=== PATIENT | male | born 1955 | race Caucasian/White ===

== ENCOUNTER → 2021-02-27 15:24 | Outpatient (BNVA) | payer OTHER, SELFPAY | PROVIDERS: Visit Provider Nurse Practitioner Family | DX: Z12.5 Encounter for screening for malignant neoplasm of prostate (principal); Z13.1 Encounter for screening for diabetes mellitus; R53.83 Other fatigue | CPT/HCPCS: 80053; 85025; G0103 ==

== ENCOUNTER → 2021-04-02 14:29 | Outpatient (BNVA) | payer OTHER, SELFPAY | PROVIDERS: PCP Nurse Practitioner Family; Visit Provider Urology | DX: N40.0 Benign prostatic hyperplasia without lower urinary tract symptoms (principal); R97.20 Elevated prostate specific antigen [PSA] | CPT/HCPCS: 81003; 84153 ==

== ENCOUNTER 2021-10-24 13:18 | Outpatient (CLI) | payer OTHER, SELFPAY | END 2021-10-24 13:19 | disposition home or self-care (01) | LOC: LAB 13:19 | PROVIDERS: PCP Nurse Practitioner Family; Visit Provider Urology | DX: R97.20 Elevated prostate specific antigen [PSA] (principal) | CPT/HCPCS: 36415; 81003; 84153 ==

== ENCOUNTER 2022-04-25 12:54 | Outpatient (CLI) | payer MEDICARE, SELFPAY | END 2022-04-25 12:55 | disposition home or self-care (01) | PROVIDERS: PCP Nurse Practitioner Family; Visit Provider Urology | DX: R97.20 Elevated prostate specific antigen [PSA] (principal) | CPT/HCPCS: 36415; 84153 ==

== ENCOUNTER → 2022-04-28 10:40 | Outpatient (BNVA) | payer MEDICARE, SELFPAY | PROVIDERS: PCP Nurse Practitioner Family; Visit Provider Nurse Practitioner Family | DX: R97.20 Elevated prostate specific antigen [PSA] (principal); N40.0 Benign prostatic hyperplasia without lower urinary tract symptoms; R73.09 Other abnormal glucose; E78.5 Hyperlipidemia, unspecified | CPT/HCPCS: 80053; 80061; 83036; 83721 ==

== ENCOUNTER → 2022-09-09 08:56 | Outpatient (BNVA) | payer MEDICARE, SELFPAY | PROVIDERS: PCP Nurse Practitioner Family; Visit Provider Nurse Practitioner Family | DX: N39.0 Urinary tract infection, site not specified (principal); E11.42 Type 2 diabetes mellitus with diabetic polyneuropathy; E78.2 Mixed hyperlipidemia; Z12.5 Encounter for screening for malignant neoplasm of prostate; R31.9 Hematuria, unspecified; R39.9 Unspecified symptoms and signs involving the genitourinary system; E11.9 Type 2 diabetes mellitus without complications | CPT/HCPCS: 80061; 81000; 83036; 87077; 87086; 87184 ==

== ENCOUNTER → 2022-09-12 17:03 | Outpatient (BNVA) | payer MEDICARE, SELFPAY | PROVIDERS: PCP Nurse Practitioner Family; Visit Provider Nurse Practitioner Family | DX: N39.0 Urinary tract infection, site not specified (principal); E11.42 Type 2 diabetes mellitus with diabetic polyneuropathy; E78.2 Mixed hyperlipidemia; Z12.5 Encounter for screening for malignant neoplasm of prostate; R31.9 Hematuria, unspecified; R39.9 Unspecified symptoms and signs involving the genitourinary system; E11.9 Type 2 diabetes mellitus without complications; R97.20 Elevated prostate specific antigen [PSA] | CPT/HCPCS: 84153 ==

== ENCOUNTER 2023-02-11 08:01 | Outpatient (CLI) | payer MEDICARE, SELFPAY ==
--- NOTE | 2023-02-11 08:30 | US_ITS ---
WS: [id number] ULTRASOUND ABDOMEN LIMITED CLINICAL INFORMATION: R10.811 - Right upper quadrant abdominal tenderness COMPARISON: None. FINDINGS: Liver Size: Enlarged craniocaudal length: 18.3 cm. Echogenicity: Coarse surface nodularity: None. Mass (size and location): None. Bile ducts Intrahepatic ducts: Normal. Common bile duct diameter: 0.4 cm. Gallbladder Shadowing gallbladder calculus measuring 8 mm near the gallbladder neck Gallstones: Present Gallbladder sludge: None. Gallbladder wall thickening: None. Pericholecystic fluid: None. Sonographic Florian sign: Absent. Pancreas Normal as visualized. Right kidney: Slightly lobulated kidney contour likely due to benign dromedary hump. Hydronephrosis: None. Size: 12.2 cm x 5.0 cm x 5.6 cm. Abdominal aorta and IVC Visualized portions are normal. Ascites: None. IMPRESSION: 1. Hepatomegaly with diffuse fatty infiltration. 2. 8 mm gallbladder calculus near the gallbladder neck. No gallbladder wall thickening or pericholec ystic fluid. 3. Normal common bile duct. 4. No hydronephrosis in the RIGHT kidney.
== END 2023-02-11 08:02 | disposition home or self-care (01) ==
LOC: RAD 08:01
PROVIDERS: PCP Nurse Practitioner Family; Visit Provider Nurse Practitioner Family
DX: R10.811 Right upper quadrant abdominal tenderness (principal); K76.0 Fatty (change of) liver, not elsewhere classified; R16.0 Hepatomegaly, not elsewhere classified; K80.20 Calculus of gallbladder without cholecystitis without obstruction
CPT/HCPCS: 76705

== ENCOUNTER → 2023-05-26 08:59 | Outpatient (BNVA) | payer MEDICARE, SELFPAY | PROVIDERS: PCP Nurse Practitioner Family; Visit Provider Nurse Practitioner Family | DX: E11.9 Type 2 diabetes mellitus without complications (principal); N40.0 Benign prostatic hyperplasia without lower urinary tract symptoms | CPT/HCPCS: 80053; 80061; 83036; 84153; 85025 ==

== ENCOUNTER 2023-11-17 14:31 | Outpatient (CLI) | payer MEDICARE, SELFPAY ==
--- NOTE | 2023-11-17 14:36 | XRR_ITS ---
PROCEDURE INFORMATION: Exam: XR Left Ankle Exam date and time: 11/17/2023 2:45 PM Age: 68 years old Clinical indication: Pain; Ankle; Left; Additional info: M25.562 - pain in left ankle TECHNIQUE: Imaging protocol: Radiologic exam of the left ankle. Views: 3 or more views. COMPARISON: No relevant prior studies available. FINDINGS: Bones/joints: Lateral soft tissue swelling. Likely old trauma with corticated densities adjacent to the joint space. Degenerative changes of the tibiotalar joint. There is no acute linear fracture. Soft tissues: Normal. XR/XR ankle LT min 3V* [id number] IMPRESSION: Evidence of prior fracture plus degenerative joint disease.
--- NOTE | 2023-11-17 14:36 | XRR_ITS ---
PROCEDURE INFORMATION: Exam: XR Right Shoulder Exam date and time: 11/17/2023 2:45 PM Age: 68 years old Clinical indication: Shoulder; Right; Patient HX: RT foot pain x 1 day, fell today and heard a pop around 1st digit, swelling and bruising; Additional info: M25.511 - pain in right shoulder TECHNIQUE: Imaging protocol: Radiologic exam of the right shoulder. Views: 2 or more views. COMPARISON: No relevant prior studies available. FINDINGS: Bones/joints: Mild acromioclavicular and glenohumeral spurring. No fracture or dislocation. No acute osseous, joint, or soft tissue abnormality. Soft tissues: Normal. XR/XR shoulder RT min 2V* [id number] IMPRESSION: No acute findings.
== END 2023-11-17 14:32 | disposition home or self-care (01) ==
LOC: RAD 14:34
PROVIDERS: PCP Nurse Practitioner Family; Visit Provider Nurse Practitioner Family
DX: M19.072 Primary osteoarthritis, left ankle and foot (principal); W19.XXXA Unspecified fall, initial encounter; M25.562 Pain in left knee; M25.511 Pain in right shoulder; Z90.49 Acquired absence of other specified parts of digestive tract
CPT/HCPCS: 73030; 73610

== ENCOUNTER → 2023-11-27 11:46 | Outpatient (BNVA) | payer MEDICARE, SELFPAY | PROVIDERS: PCP Nurse Practitioner Family; Visit Provider Podiatrist Foot & Ankle Surgery | DX: M25.572 Pain in left ankle and joints of left foot (principal); G89.29 Other chronic pain; M19.072 Primary osteoarthritis, left ankle and foot; M25.372 Other instability, left ankle | CPT/HCPCS: 99203 ==

== ENCOUNTER → 2023-12-02 07:54 | Outpatient (BNVA) | payer MEDICARE, SELFPAY | PROVIDERS: PCP Nurse Practitioner Family; Visit Provider Nurse Practitioner Family | DX: I10 Essential (primary) hypertension (principal); E11.9 Type 2 diabetes mellitus without complications | CPT/HCPCS: 80053; 80061; 83036 ==

== ENCOUNTER → 2024-02-09 14:24 | Outpatient (BNVA) | payer MEDICARE, SELFPAY | PROVIDERS: PCP Nurse Practitioner Family; Visit Provider Student in an Organized Health Care Education/Training Program | DX: M75.41 Impingement syndrome of right shoulder | CPT/HCPCS: 20610; 99213; J3301 ==

== ENCOUNTER 2024-02-24 10:56 | Outpatient (CLI) | payer MEDICARE, SELFPAY | END 2024-02-24 10:57 | disposition home or self-care (01) | LOC: SPT 10:57 | PROVIDERS: PCP Nurse Practitioner Family; Visit Provider Podiatrist Foot & Ankle Surgery | DX: Z46.89 Encounter for fitting and adjustment of other specified devices (principal); M25.532 Pain in left wrist | CPT/HCPCS: L4361 ==

== ENCOUNTER → 2024-05-17 07:32 | Outpatient (BNVA) | payer MEDICARE, SELFPAY | PROVIDERS: PCP Nurse Practitioner Family; Visit Provider Podiatrist Foot & Ankle Surgery | DX: M19.072 Primary osteoarthritis, left ankle and foot (principal); M25.572 Pain in left ankle and joints of left foot; G89.29 Other chronic pain; M25.372 Other instability, left ankle; E11.9 Type 2 diabetes mellitus without complications | CPT/HCPCS: 20605; 99213; J1100; J3301; J3490 ==

== ENCOUNTER → 2024-06-14 10:26 | Outpatient (BNVA) | payer MEDICARE, SELFPAY | PROVIDERS: PCP Nurse Practitioner Family; Visit Provider Student in an Organized Health Care Education/Training Program | DX: M75.41 Impingement syndrome of right shoulder (principal) | CPT/HCPCS: 20610; 99213; J3301; J9999 ==

== ENCOUNTER → 2024-07-19 09:20 | Outpatient (BNVA) | payer MEDICARE, SELFPAY | PROVIDERS: PCP Nurse Practitioner Family; Visit Provider Podiatrist Foot & Ankle Surgery | DX: M25.571 Pain in right ankle and joints of right foot (principal); M19.072 Primary osteoarthritis, left ankle and foot; M25.372 Other instability, left ankle; M25.572 Pain in left ankle and joints of left foot; E11.9 Type 2 diabetes mellitus without complications; G89.29 Other chronic pain | CPT/HCPCS: 73610; 99214 ==

== ENCOUNTER 2024-07-28 11:16 | Outpatient (CLI) | payer MEDICARE, SELFPAY ==
--- NOTE | 2024-07-28 11:45 | MRR_ITS ---
PROCEDURE INFORMATION: Exam: MR Left Lower Extremity Joint Without Contrast; Ankle Exam date and time: 07/28/2024 12:03 PM Age: 69 years old Clinical indication: Left; Chronic lt ankle pain/no injury; Additional info: Surgical planning TECHNIQUE: Imaging protocol: Magnetic resonance imaging of the left lower extremity without contrast. Exam focused on the ankle. COMPARISON: CR XR ankle LT min 3V* [id number] 11/17/2023 2:45 PM FINDINGS: Bones/joints: Prominent arthritic changes involve the tibiotalar joint. There is a moderate joint effusion present along with prominent synovial hypertrophy and multiple synovial calcifications. Subchondral bony edema involves the distal tibia as well as the talar dome. Prominent bony spurring involves the lateral malleolus with adjacent calcifications noted. Prominent arthritic spurring involves the medial malleolus with adjacent soft tissue calcifications. LIGAMENTS: Distal tibiofibular syndesmosis: Unremarkable. No tear. Anterior talofibular ligament: Unremarkable. No tear. Posterior talofibular ligament: Unremarkable. No tear. Calcaneofibular ligament: Unremarkable. No tear. Deltoid ligament complex: Unremarkable. No tear. TENDONS: Flexor tendons of foot: See below. Tibialis posterior tendon: Unremarkable as visualized. Peroneal tendons: Unremarkable as visualized. Extensor tendons of foot: Unremarkable as visualized. Tibialis anterior tendon: Unremarkable as visualized. Achilles tendon: Unremarkable as visualized. Tarsal canal (Sinus tarsi): Unremarkable. Normal signal of the fat. Tarsal tunnel: Unremarkable. Soft tissues: There is prominent fluid surrounding the medial tendons of the ankle but the tendons demonstrate no evidence of tear or significant tendinitis. Plantar fascia: Plantar fascia is unremarkable. MR/MR ankle LT wo con* [id number] IMPRESSION: 1. Prominent arthritic changes as detailed above 2. Tenosynovitis of the medial ankle tendons
== END 2024-07-28 11:17 | disposition home or self-care (01) ==
PROVIDERS: PCP Nurse Practitioner Family; Visit Provider Podiatrist Foot & Ankle Surgery
DX: M19.072 Primary osteoarthritis, left ankle and foot (principal); M25.372 Other instability, left ankle; M65.872 Other synovitis and tenosynovitis, left ankle and foot; M25.472 Effusion, left ankle; R93.6 Abnormal findings on diagnostic imaging of limbs; M67.272 Synovial hypertrophy, not elsewhere classified, left ankle and foot; M77.8 Other enthesopathies, not elsewhere classified
CPT/HCPCS: 73721

== ENCOUNTER → 2024-08-01 09:32 | Outpatient (BNVA) | payer MEDICARE, SELFPAY | PROVIDERS: PCP Nurse Practitioner Family; Visit Provider Podiatrist Foot & Ankle Surgery | DX: M19.072 Primary osteoarthritis, left ankle and foot (principal); E11.9 Type 2 diabetes mellitus without complications; M25.372 Other instability, left ankle; M25.571 Pain in right ankle and joints of right foot; G89.29 Other chronic pain; M25.572 Pain in left ankle and joints of left foot; E11.69 Type 2 diabetes mellitus with other specified complication | CPT/HCPCS: 99214 ==

== ENCOUNTER → 2024-08-31 10:25 | Outpatient (BNVA) | payer MEDICARE, SELFPAY | PROVIDERS: PCP Nurse Practitioner Family; Visit Provider Nurse Practitioner Family | DX: I10 Essential (primary) hypertension (principal); E11.9 Type 2 diabetes mellitus without complications | CPT/HCPCS: 80053; 80061; 83036; 83721 ==

== ENCOUNTER 2024-09-02 09:06 | Day surgery (SDC) | payer MEDICARE, SELFPAY ==
[2024-09-02] VITALS (10 sets, daily range): BP systolic 147–199; BP diastolic 69–115; PULSE 57–72; RESP 12–18; TEMP 36.1–36.6; O2SAT 93–98; BMI 35.9
--- NOTE | 2024-09-02 09:42 | ANES.PREANE2 ---
Pre-Anesthetic Assessment Height/Weight: Height 1.8 m Preop Diagnosis: Left ankle arthritis Operation Date: 09/02/24 11:05 Proposed Procedures p LEFT Ankle Arthroscopy(Left) - Stefan Marc DPM s Debridement(Left) - Stefan Marc DPM Familial anesthetic complications: none Was Beta Milady taken within 24 hours: N/A Was Clonidine taken within 24 hours: N/A Last intake: > 8 hrs Social Tobacco (chews) and No alcohol Exam alert, oriented x 3, clear to auscultation bilaterally and regular rate & rhythm Airway Mallampati: Class III Dentition: full CV/HEM Hypertension AAA GI Gastroesophageal Reflux Disease Anesthetic Plan ASA status: 3 Anesthesia: General and Regional (specify below) Risk of > 500 ml blood loss (7ml/kg in children): No Medications/Allergies Home Medications ?Medication ?Instructions ?Recorded ?Confirmed ?Last Taken ?Type acetaminophen 325 mg tablet 325 mg PO QID PRN Mild Pain (Scale 04/02/21 09/01/24 Unknown History (Tylenol) Score 1-4) omeprazole 20 mg tablet,delayed 20 mg PO DAILY 04/02/21 09/01/24 09/01/24 History release Articulating AFO to the left #1 ea 11/27/23 08/31/24 Unknown Rx CAM BOOT #1 ea 02/24/24 08/31/24 Unknown Rx lisinopril 10 mg tablet 10 mg PO DAILY #90 tabs 08/31/24 09/02/24 Unknown Rx tamsulosin 0.4 mg capsule 0.4 mg PO DAILY 09/01/24 09/01/24 09/01/24 History finasteride 5 mg tablet 5 mg PO DAILY 09/02/24 09/02/24 09/01/24 History Allergies Allergy/AdvReac Type Severity Reaction Status Date / Time No Known Allergies Allergy Verified 09/01/24 12:22 [facility] Anesthesia Medical History BPH loc w/o ur obs/LUTS Elevated PSA Diverticulitis GERD (gastroesophageal reflux disease) Surgical History History of cholecystectomy History of ear surgery History of colon resection Family History Mother , in her 70's Lung disease Father , at age 76 Cancer leukemia Diabetes Social History Smoking and tobacco/nicotine status: former use of tobacco/nicotine Alcohol intake: current Alcohol intake frequency: holidays/special occasions only Substance/Drug Use: never Adopted: No Lives independently: Yes Household members: spouse Marital status: Current occupational status: employed
[2024-09-02] MEDS: gabapentin 300 mg Capsule PO (09:47)
[2024-09-02] MEDS: sodium chloride 0.9% 1,000 ML 30 ML IV (09:47)
[2024-09-02] MEDS: CELEcoxib 200 mg Capsule 400 MG PO (09:47)
[2024-09-02 09:48] LABS: Glucose Point of Care 191 mg/dL (70-110)
--- NOTE | 2024-09-02 10:31 | W.PM.OPSUD ---
Surgery/Procedure H&P Update DATE OF PROCEDURE: September 02, 2024 DATE H&P PERFORMED: 09/02/24 H&P UPDATE INFORMATION: I have reviewed H&P completed within last 30 days, I have examined patient prior to procedure, No changes to prior documentation and Risks and benefits of the procedure reviewed PREOP DIAGNOSIS: Left ankle arthritis PLANNED PROCEDURE: Operation Date: 09/02/24 11:05 Proposed Procedures p LEFT Ankle Arthroscopy(Left) - Stefan Marc DPM s Debridement(Left) - Stefan Marc DPM
--- NOTE | 2024-09-02 10:32 | PM.OPSURHP ---
Providers/Chief Complaint Primary Care Provider: DORIS Montesinos Chief Complaint: M25.572 History of Present Illness Mr. Winkler is an established 69 year old male patient who presents to the clinic for follow up of his left ankle pain and to go over recent MRI results. The patient is a 69-year-old male presenting with left ankle arthritis, which he has been managing for several years. Recently, the patient noted an increase in symptoms, including pain and grinding in the affected ankle. These symptoms are attributed to the presence of bone spurs, with the most discomfort located in the anterior aspect of the ankle. The patient has tried conservative management, including [id number] medications, but without adequate relief. No previous surgeries have been performed on the affected ankle. The patient is considering surgical options to alleviate the chronic symptoms that have progressively worsened over time. Accompanied by his and granddaughter. Review of Systems General: Reports: 10 or more systems reviewed and unremarkable except in HPI and below Const: Denies: fever(s) or chills Eyes: Denies: change in vision Card: Denies: chest pain or palpitations Resp: Denies: dyspnea or productive cough GI: Denies: abdominal pain, nausea or vomiting : Denies: flank pain Musc: Reports: extremity pain, joint pain, joint stiffness, limited range of motion and deformity Skin/Breast: Reports: skin tenderness; Denies: rash Neuro: Reports: difficulty walking; Denies: numbness in extremities, sensory changes or frequent falls Psych: Denies: suicidal ideation Byron/Lymph: Denies: easy bruising Medications/Allergies Home Medications ?Medication ?Instructions ?Recorded ?Confirmed ?Last Taken ?Type acetaminophen 325 mg tablet 325 mg PO QID PRN Mild Pain (Scale 04/02/21 09/01/24 Unknown History (Tylenol) Score 1-4) omeprazole 20 mg tablet,delayed 20 mg PO DAILY 04/02/21 09/01/24 09/01/24 History release Articulating AFO to the left #1 ea 11/27/23 08/31/24 Unknown Rx CAM BOOT #1 ea 02/24/24 08/31/24 Unknown Rx lisinopril 10 mg tablet 10 mg PO DAILY #90 tabs 08/31/24 09/02/24 Unknown Rx tamsulosin 0.4 mg capsule 0.4 mg PO DAILY 0609/01/24 09/01/24 History finasteride 5 mg tablet 5 mg PO DAILY 09/02/24 09/02/24 09/01/24 History Allergies Allergy/AdvReac Type Severity Reaction Status Date / Time No Known Allergies Allergy Verified 09/01/24 12:22 PFSH PFSH: Medical History BPH loc w/o ur obs/LUTS Elevated PSA Diverticulitis GERD (gastroesophageal reflux disease) Surgical History History of cholecystectomy History of ear surgery History of colon resection Family History Mother , in her 70's Lung disease Father , at age 76 Cancer leukemia Diabetes Social History Smoking and tobacco/nicotine status: former use of tobacco/nicotine Alcohol intake: current Alcohol intake frequency: holidays/special occasions only Substance/Drug Use: never Adopted: No Lives independently: Yes Household members: spouse Marital status: Current occupational status: employed Vital Signs Vitals Signs: Last Vital Signs Temp 97.5 F L 09/02/24 09:28 Pulse 58 L 09/02/24 09:28 Resp 16 09/02/24 09:28 BP 199/115 09/02/24 09:28 Pulse Ox 97 09/02/24 09:28 O2 Del Method Room Air 09/02/24 09:28 Weight: Weight last 48 hrs Weight 258 lb Physical Exam Narrative: EXAM NARRATIVE: Patient is alert and oriented ?3 and in no acute distress. The following is a focused bilateral lower extremity exam. VASCULAR: Dorsalis pedis and posterior tibial arteries palpable +2. Capillary refill time less than 3 seconds to the distal hallux bilaterally. Calf is supple and nontender proximally and distally. No pedal edema appreciated. Pedal hair growth present. NEUROLOGICAL: Epicritic and protopathic sensations grossly intact to the lower extremities. +2 Achilles tendon reflex noted bilaterally. Negative Tinel sign upon percussion of lower extremity nerves. DERMATOLOGICAL: Lower extremity skin is well-hydrated, normal texture and turgor. There are no open sores or lesions noted to the lower extremities. No erythema or ecchymosis present to the bilateral legs and feet. MUSCULOSKELETAL: Tenderness to palpation left lateral ankle. Anterior drawer sign is positive to the left lateral ankle. Positive talar tilt test to the left ankle. Plantarflexion 40 degrees of flexion 12 degrees left ankle. Tenderness palpation left anterior and lateral ankle. CARDIOVASCULAR: S1, S2, normal rate, normal rhythm. Dorsalis pedis and posterior tibial arteries palpable. LUNGS: Clear to auscltation, no use of acessory muscles, no crackles or wheezes. A&P Assessment and plan (1) Chronic pain of left ankle: (2) Arthritis of left ankle: (3) Tenosynovitis of left ankle: Plan Reviewed MRI shows degenerative changes with osteoarthritis right ankle. 69-year-old male with a history of left ankle arthritis presenting with progressive pain and grinding in the affected ankle confirmed by imaging. Despite the chronic nature of the arthritis, the patient actively seeks further management due to increasing discomfort and impaired mobility. 1. Left Ankle Arthritis The patient is scheduled for an arthroscopy on September 02. This procedure aims to alleviate the symptoms of left ankle arthritis by removing bone spurs and cleaning the joint space. The patient was counseled on the expected course and typical recovery timeline, including a two-week transition to weight-bearing. Alternatives such as ankle fusion or replacement were discussed but not selected, given the patient?s current condition and preferences. - Prepare for the upcoming surgery on September 02. - Stop taking Tylenol and Aleve on the day before surgery. - Expect to bear limited weight for two weeks post-surgery. - You may resume wearing regular shoes around six weeks after the procedure. - Wait for a call on September 01 to confirm the time of the surgery. - Follow the pain management plan with prescribed medications post-surgery. - Call immediately if you experience unexpected pain or complications. The decision to pursue arthroscopy was based on the severity of the patient's left ankle arthritis and his desire to achieve symptomatic relief with a less invasive procedure. The risks and benefits were weighed against other surgical options such as fusion and replacement, with the latter deemed unnecessary at the current stage due to the patient's age and lifestyle. Arthroscopy offers the possibility of significant relief with a faster recovery, aligning with the patient?s goals of maintaining an active lifestyle. The plan involves pre- and post-operative care instructions and ensuring the patient is prepared for the procedure on September 02. I reviewed at length with the patient, the risks, potential complications, benefits, alternatives, expectations, and typical outcomes associated with the surgery. The risks and potential complications were explained in detail, including but not limited to infection, wound dehiscence or soft tissue complications, bleeding and hematoma, chronic edema, neuritis or nerve damage producing numbness or chronic pain, CRPS, failure to relieve pain or worsening pain, thick / painful / unsightly scar, limited motion / stiffness, malposition, delayed union, malunion, or nonunion, fracture, reaction to implants, anesthetic complications, venous thromboembolism, and deformity recurrence. I discussed the notion of no regrets with the patient as it pertains to complications and outcomes. The patient seemed to understand the nature of the proposed care and required convalescence. They asked appropriate questions, answered to their satisfaction. They are aware no guarantees can be made as to a satisfactory outcome and they understand there may be other possible unforeseen complications or outcomes not listed here that will be treated accordingly if they arise. There were no written or implied guarantees given to the patient. They gave informed consent to proceed. PDMP PDMP Reviewed: Not Reviewed Coding Level of Care Code Acute Code for [facility] Fwd Diagnoses Chronic pain of left ankle M25.572; G89.29 Arthritis of left ankle M19.072 Tenosynovitis of left ankle M65.972
[2024-09-02] MEDS: ceFAZolin 2,000 mg SDV 2000 MG IVP (10:40)
--- NOTE | 2024-09-02 10:55 | ANES.PROC ---
Anesthesia Procedures Procedure/Date: 09/02/24 Nerve Block ^: Nerve Block 1: Main Anesthesia: general anesthesia Time Out Performed: Yes Consent: requested by attending/covering physician and from patient Nerve block location: popliteal Anesthesia monitors applied: pulse oximetry, EKG, BP cuff and oxygen Nerve block position: supine Anesthetic Used: ropivicaine 0.5% (0.25%) Amount of anesthesia used (mL): 20 Ultrasound used to: recognize landmarks and other (popliteal artery, common peroneal nerve tibial nerve bifurcation) Nerve Stimulator Used?: Yes Interscalene/Femoral BLK: 4 stimuplex 21 g needle used for position and inplane approach, visualize local anesthetic spread and no vascular puncture identified Injection: neg aspiration of heme Patient Tolerated Procedure: well and no complications Complications: none Nerve Block 2: Main Anesthesia: general anesthesia Time Out Performed: Yes Consent: requested by attending/covering physician and from patient Nerve block location: adductor canal Anesthesia monitors applied: pulse oximetry, EKG, BP cuff and oxygen Nerve block position: supine Anesthetic Used: ropivicaine 0.5% (0.25%) Amount of anesthesia used (mL): 20 Ultrasound used to: recognize landmarks and other (femoral artery, saphenous nerve) Nerve Stimulator Used?: No Interscalene/Femoral BLK: 4 stimuplex 21 g needle used for position and inplane approach, visualize local anesthetic spread and no vascular puncture identified Injection: neg aspiration of heme Patient Tolerated Procedure: well and no complications Complications: none
[2024-09-02] MEDS: lidocaine-epi 1% 20 mL INJ 10 ML INJECTION (11:02)
--- NOTE | 2024-09-02 11:41 | W.PM.BPON ---
Date of Procedure: 05/29/23 Surgeon: Stefan Marc DPM [employer](s): Marylin Procedure(s) performed: Left ankle scope with debridement Findings of the procedure(s): Hemorrhagic synovitis left ankle joint. Osteoarthritis left ankle. Estimated blood loss: 1 mL Specimen(s) removed: None Post-operative diagnosis: Hemorrhagic synovitis left ankle joint. Left ankle joint osteoarthritis.
--- NOTE | 2024-09-02 11:42 | P.OP_ITS ---
Operative Report Date of procedure: September 02, 2024 Pre-op diagnosis: Arthritis of left ankle M19.072 Left ankle instability M25.372 Chronic pain of left ankle M25.572; G89.29 Post-op diagnosis: Arthritis of left ankle M19.072 Left ankle instability M25.372 Chronic pain of left ankle M25.572; G89.29 Procedure done: Left ankle scope with debridement. CPT code 95519 Implants: 4-0 nylon Specimens removed/disposition: None Pathology: None Surgeon: Stefan Marc DPM Transverse Abdominal Muscle Surgeon: Marylin Estimated blood loss: 1 14 IV fluids: see intraoperative documentation Urine output: None Complications: None Brief History: Reviewed MRI shows degenerative changes with osteoarthritis right ankle. 69-year-old male with a history of left ankle arthritis presenting with progressive pain and grinding in the affected ankle confirmed by imaging. Despite the chronic nature of the arthritis, the patient actively seeks further management due to increasing discomfort and impaired mobility. 1. Left Ankle Arthritis The patient is scheduled for an arthroscopy on September 02. This procedure aims to alleviate the symptoms of left ankle arthritis by removing bone spurs and cleaning the joint space. The patient was counseled on the expected course and typical recovery timeline, including a two-week transition to weight-bearing. Alternatives such as ankle fusion or replacement were discussed but not selected, given the patient?s current condition and preferences. - Prepare for the upcoming surgery on September 02. - Stop taking Tylenol and Aleve on the day before surgery. - Expect to bear limited weight for two weeks post-surgery. - You may resume wearing regular shoes around six weeks after the procedure. - Wait for a call on September 01 to confirm the time of the surgery. - Follow the pain management plan with prescribed medications post-surgery. - Call immediately if you experience unexpected pain or complications. The decision to pursue arthroscopy was based on the severity of the patient's left ankle arthritis and his desire to achieve symptomatic relief with a less invasive procedure. The risks and benefits were weighed against other surgical options such as fusion and replacement, with the latter deemed unnecessary at the current stage due to the patient's age and lifestyle. Arthroscopy offers the possibility of significant relief with a faster recovery, aligning with the patient?s goals of maintaining an active lifestyle. The plan involves pre- and post-operative care instructions and ensuring the patient is prepared for the procedure on September 02. I reviewed at length with the patient, the risks, potential complications, benefits, alternatives, expectations, and typical outcomes associated with the surgery. The risks and potential complications were explained in detail, including but not limited to infection, wound dehiscence or soft tissue complications, bleeding and hematoma, chronic edema, neuritis or nerve damage producing numbness or chronic pain, CRPS, failure to relieve pain or worsening pain, thick / painful / unsightly scar, limited motion / stiffness, malposition, delayed union, malunion, or nonunion, fracture, reaction to implants, anesthetic complications, venous thromboembolism, and deformity recurrence. I discussed the notion of no regrets with the patient as it pertains to complications and outcomes. The patient seemed to understand the nature of the proposed care and required convalescence. They asked appropriate questions, answered to their satisfaction. They are aware no guarantees can be made as to a satisfactory outcome and they understand there may be other possible unforeseen complications or outcomes not listed here that will be treated accordingly if they arise. There were no written or implied guarantees given to the patient. They gave informed consent to proceed. Procedure: Under mild sedation patient was brought to the operating room and remained on the gurney in supine position. A timeout was performed. Anesthesia was then administered by the anesthesia service. Of note left popliteal block was performed preoperatively per anesthesia. Well-padded pneumatic tourniquet applied to the patient's left high calf. Left lower extremity was then scrubbed, prepped and draped utilizing normal aseptic technique. Left foot was elevated and tourniquet inflated to 250 mmHg. Attention was then directed to the anterior left ankle where medial and lateral ankle scope portals were established utilizing standard technique, medial to the tibialis anterior tendon and lateral to the peroneus tertius is not violating the superficial peroneal nerve, Arthrex Regine scope utilized with excellent visualization of the ankle joint with extensive hemorrhagic synovitis which was shaved with oscillating shaver, no osteochondral defect, [place]'s ligament visualized intact, no remaining synovitis after extensive debridement. Of note patient had eburnation of cartilage surfaces with narrowing of tibial talar joint space. Irrigation was performed with lactated Ringer's 1 L and portals were closed with 4-0 nylon. Tourniquet was deflated and a prompt hyperemic response was noted to the distal digits of the left foot. Patient tolerated the procedure and anesthesia well and was transferred to the PACU with vital signs stable and vascular status intact. Following a period of postoperative monitoring he will be discharged home without home care instructions and scheduled follow-up. He was dispensed a cam boot may be weightbearing as tolerated in a cam boot.
--- NOTE | 2024-09-02 12:50 | ANE.PACU2 ---
Inpatient post-anesthesia follow up: Airway intact: Yes Vital signs: Temperature 97.0 F Pulse Rate 60 Respiratory Rate 16 Blood Pressure 160/99 Pulse Oximetry 98 Oxygen Delivery Me thod Room Air Oxygen Flow Rate Fraction of Inspir ed Oxygen Hydration adequate: Yes Nausea and vomiting: No Pain level: 1 Mental status: Baseline
--- NOTE | 2024-09-02 12:52 | SUR.PHASEII ---
PAtients BP has been high throughout stay. Patient states he was prescribed lisinopril the other day by his PCP and he has not started taking it yet. I advised patient to take lisinopril when he gets home today. He verbalized understanding.
== END 2024-09-02 12:50 | disposition home or self-care (01) ==
PROVIDERS: PCP Nurse Practitioner Family; Visit Provider Podiatrist Foot & Ankle Surgery
PROC: (CPT 29898; principal; 2024-09-02 10:55)
PROC: (CPT 29898; 2024-09-02 10:55)
DX: M19.072 Primary osteoarthritis, left ankle and foot (principal); M25.372 Other instability, left ankle; I10 Essential (primary) hypertension; K21.9 Gastro-esophageal reflux disease without esophagitis; Z87.891 Personal history of nicotine dependence
CPT/HCPCS: 29898; 36416; 82962; J0690; J2250; J2704; J2795; J3010; J7030; J9999

== ENCOUNTER → 2024-09-14 11:17 | Outpatient (BNVA) | payer MEDICARE, SELFPAY | PROVIDERS: PCP Nurse Practitioner Family; Visit Provider Podiatrist Foot & Ankle Surgery | DX: Z98.890 Other specified postprocedural states (principal) | CPT/HCPCS: 99024 ==

== ENCOUNTER 2024-09-29 08:31 | Outpatient (CLI) | payer MEDICARE, SELFPAY ==
--- NOTE | 2024-09-29 09:00 | USCV_ITS ---
Kartik Winkler Age: 69 Gender: M : 1955 Exam Date: 09/29/2024 09:05 Ordering Phys: Brigid Khan-Holland FENTONP Technologist: [facility]R [place] [facility] [place]: infrarenal AAA HISTORY: Diameter (cm) AP x Transverse x Length Velocity (cm/s) Waveform Prox Aorta: 2.50 x 3.10 x 31.00 Mid Aorta: 2.70 x 3.00 x 44.60 Distal Aorta: 2.90 x 3.10 x 40.80 Right Iliac Prox: 0.75 x 1.29 x 120.80 Left Iliac Prox: 1.03 x 1.40 x 155.10 Stent Prox Landing x x Aneurysmal Sac Max x x Lt Lat Sac Dim Rt Lat Sac Dim Stent Dist Landing x x Right Iliac Stent x x Left Iliac Stent x x Right Renal Art Left Renal Art FINDINGS: CONCLUSIONS 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
== END 2024-09-29 08:32 | disposition home or self-care (01) ==
LOC: RAD 08:34
PROVIDERS: PCP Nurse Practitioner Family; Visit Provider Nurse Practitioner Family
DX: I71.43 Infrarenal abdominal aortic aneurysm, without rupture (principal); I70.0 Atherosclerosis of aorta
CPT/HCPCS: 93978

== ENCOUNTER → 2024-10-13 13:39 | Outpatient (BNVA) | payer MEDICARE, SELFPAY | PROVIDERS: PCP Nurse Practitioner Family; Visit Provider Podiatrist Foot & Ankle Surgery | DX: M19.072 Primary osteoarthritis, left ankle and foot (principal) | CPT/HCPCS: 99024; 99213 ==

== ENCOUNTER → 2025-01-24 11:20 | Outpatient (BNVA) | payer MEDICARE, SELFPAY | PROVIDERS: PCP Nurse Practitioner Family; Visit Provider Nurse Practitioner Family | DX: I10 Essential (primary) hypertension (principal); E11.9 Type 2 diabetes mellitus without complications | CPT/HCPCS: 80053; 80061; 83036; 83721 ==